=== PATIENT | female | born 1950 | race Caucasian/White ===

== ENCOUNTER 2021-04-26 08:39 | Day surgery (SDC) | payer MEDICARE, MEDICAID ==
[~2021-04-26] VITALS: Ht 157.5 cm; Wt 84.5 kg
[~2021-04-26 08:39] MED LIST: ASPI-1450 PO; ATOR40TA28 PO; CARV12 PO; FAMO20 PO; HYDR25TA2 PO; LOSA-382 PO; METF-1211 PO; TICA90TA PO
[2021-04-26] MEDS ORDERED: METF-446 PO (09:55)
[2021-04-26] MEDS ORDERED: CLOP75TA32 PO (09:55)
[2021-04-26] MEDS ORDERED: LOSA100T58 PO (09:55)
[2021-04-26] MEDS ORDERED: NIFE30TA98 PO (09:55)
[2021-04-26] MEDS ORDERED: METO25 PO (09:55)
[2021-04-26] MEDS ORDERED: EZET10TA57 PO (09:55)
[2021-04-26] MEDS ORDERED: FURO20TA4 PO (09:55)
[2021-04-26] MEDS ORDERED: DiphenhydrAMINE HCL 50 MG CAPSULE PO ONE (10:15)
[2021-04-26] MEDS ORDERED: ASPIRIN 81 MG CHEWABLE TABLET PO ONE (10:15)
[2021-04-26] MEDS ORDERED: SODIUM CHLORIDE 0.9% 1,000 ML IV SCH (10:15)
[2021-04-26] MEDS ORDERED: DIAZEPAM 5 MG TABLET PO ONE (10:15)
[2021-04-26] MEDS ORDERED: DiphenhydrAMINE HCL 50 MG CAPSULE ONE (10:16)
[2021-04-26] MEDS ORDERED: DIAZEPAM 5 MG TABLET ONE (10:16)
[2021-04-26] MEDS ORDERED: SODIUM BICARBONATE 50 MEQ/50 ML VIAL ONE (10:42)
[2021-04-26] MEDS ORDERED: HEPARIN SODIUM 1000 UNITS/NS 1,000 ML ONE (10:42)
[2021-04-26] MEDS ORDERED: LIDOCAINE/PF 1% 30 ML VIAL ONE (10:42)
[2021-04-26] MEDS ORDERED: IOHEXOL 300 MG/ML 100 ML VIAL ONE (10:42)
[2021-04-26] MEDS ORDERED: IOHEXOL 300 MG/ML 150 ML VIAL ONE ×2 (10:42→11:52)
[2021-04-26] MEDS ORDERED: IOHEXOL 300 MG/ML 50 ML VIAL ONE (10:42)
[2021-04-26 11:15] VITALS: BP 166/60
[2021-04-26] MEDS ORDERED: FentaNYL CITRATE PF 100 MCG/2 ML VIAL ONE (11:16)
[2021-04-26] MEDS ORDERED: NALOXONE HCL 0.4 MG/ML VIAL ONE (11:16)
[2021-04-26] MEDS ORDERED: FLUMAZENIL 0.1 MG/ML 5 ML VIAL IVP ONE (11:16)
[2021-04-26] MEDS ORDERED: MIDAZOLAM HCL 2 MG/2 ML VIAL ONE (11:16)
[2021-04-26] MEDS ORDERED: CLOPIDOGREL BISULFATE 300 MG TABLET ONE (11:40)
[2021-04-26] MEDS ORDERED: IOHEXOL 300 MG/ML 150 ML VIAL IARTER ONE (11:45)
[2021-04-26] MEDS ORDERED: HEPARIN SODIUM 1000 UNITS/NS 1,000 ML IARTER ONE (11:45)
[2021-04-26] MEDS ORDERED: LIDOCAINE 1% 30 ML/SOD BICARB 8.4% 4 ML SQ ONE (11:45)
[2021-04-26] MEDS ORDERED: FentaNYL CITRATE PF 100 MCG/2 ML VIAL IVP ONE (11:45)
[2021-04-26] MEDS ORDERED: MIDAZOLAM HCL 2 MG/2 ML VIAL IVP ONE (11:45)
[2021-04-26] MEDS ORDERED: CLOPIDOGREL BISULFATE 300 MG TABLET PO ONE (12:15)
[2021-04-26] MEDS ORDERED: HEPARIN SODIUM,PORCINE 5,000 UNITS/ML VIAL IVP ONE (12:15)
== END 2021-04-26 16:35 | disposition home or self-care (01) ==
LOC: CATHLAB 08:39
PROVIDERS: ATTEND Internal Medicine Interventional Cardiology
DX: I25.110 Atherosclerotic heart disease of native coronary artery with unstable angina pectoris (principal); I10 Essential (primary) hypertension; E11.9 Type 2 diabetes mellitus without complications; M19.90 Unspecified osteoarthritis, unspecified site; E78.00 Pure hypercholesterolemia, unspecified; Z98.890 Other specified postprocedural states; Z87.891 Personal history of nicotine dependence; Z79.899 Other long term (current) drug therapy
CPT/HCPCS: 82962; 92920; 93005; 93458; 99152; 99153; C1760; C1874; C1887; C9600; J1644; J2250; J3010; J3490 ×2; Q9967 ×3; 92921; 92928; J2310

== ENCOUNTER 2021-08-13 11:23 | Observation (INO) | payer MEDICARE, MEDICAID ==
[~2021-08-13] VITALS: Ht 160 cm; Wt 84.5 kg
[~2021-08-13 11:23] MED LIST changes: -CARV12 PO; +CLOP75TA32 PO; +EMPA25TA PO; +EZET10TA57 PO; -FAMO20 PO; +FURO20TA4 PO; -HYDR25TA2 PO; +LINA5TAB PO; -LOSA-382 PO; +LOSA100T58 PO; -METF-1211 PO; +METF-446 PO; +METO25 PO; +NIFE-39 PO; +NITR0.4T52 SL; +SODIUM CHLORIDE 0.9% 1,000 ML ONE; -TICA90TA PO
[2021-08-13] MEDS ORDERED: SODIUM CHLORIDE 0.9% 1,000 ML IV ONE (11:30)
[2021-08-13 12:41] LABS: GLUCOMETER DEV NAME(LOC) SDS.; GLUCOSE,POINT OF CARE 150 MG/DL (70-110)
[2021-08-13 12:56] LABS: COVID AG,FIA SOURCE NASAL SWAB
[2021-08-13] MEDS ORDERED: DiphenhydrAMINE HCL 50 MG CAPSULE PO ONE (13:30)
[2021-08-13] MEDS ORDERED: ASPIRIN 81 MG CHEWABLE TABLET PO ONE (13:30)
[2021-08-13] MEDS ORDERED: DIAZEPAM 5 MG TABLET PO ONE (13:30)
[2021-08-13] MEDS ORDERED: DiphenhydrAMINE HCL 50 MG CAPSULE ONE (13:35)
[2021-08-13] MEDS ORDERED: DIAZEPAM 5 MG TABLET ONE (13:35)
[2021-08-13] MEDS ORDERED: LIDOCAINE/PF 1% 30 ML VIAL ONE (14:29)
[2021-08-13] MEDS ORDERED: HEPARIN SODIUM 1000 UNITS/NS 1,000 ML ONE (14:29)
[2021-08-13] MEDS ORDERED: IOHEXOL 300 MG/ML 100 ML VIAL ONE (14:29)
[2021-08-13] MEDS ORDERED: IOHEXOL 300 MG/ML 50 ML VIAL ONE (14:29)
[2021-08-13] MEDS ORDERED: SODIUM BICARBONATE 50 MEQ/50 ML VIAL ONE (14:29)
[2021-08-13] MEDS ORDERED: IOHEXOL 300 MG/ML 150 ML VIAL ONE (14:29)
[2021-08-13] MEDS ORDERED: FentaNYL CITRATE PF 100 MCG/2 ML VIAL ONE (14:50)
[2021-08-13] MEDS ORDERED: MIDAZOLAM HCL 2 MG/2 ML VIAL ONE (14:50)
[2021-08-13 14:53] VITALS: BP 106/63
[2021-08-13] MEDS ORDERED: LIDOCAINE 1% 30 ML/SOD BICARB 8.4% 4 ML SQ ONE (15:00)
[2021-08-13] MEDS ORDERED: FentaNYL CITRATE PF 100 MCG/2 ML VIAL IVP ONE (15:00)
[2021-08-13] MEDS ORDERED: IOHEXOL 300 MG/ML 150 ML VIAL IARTER ONE (15:00)
[2021-08-13] MEDS ORDERED: HEPARIN SODIUM 1000 UNITS/NS 1,000 ML IARTER ONE (15:00)
[2021-08-13] MEDS ORDERED: MIDAZOLAM HCL 2 MG/2 ML VIAL IVP ONE (15:00)
[2021-08-13] MEDS ORDERED: HEPARIN SODIUM,PORCINE 5,000 UNITS/ML VIAL IVP ONE ×3 (15:15→16:15)
[2021-08-13] MEDS ORDERED: PHENYLEPHRINE 200 MG/D5%-WATER 0 ML IV ONE (15:48)
[2021-08-13] MEDS ORDERED: TICAGRELOR 90 MG TABLET ONE (16:26)
[2021-08-13 16:38] VITALS: BP 106/56
[2021-08-13] MEDS ORDERED: TICAGRELOR 90 MG TABLET PO ONE (16:45)
[2021-08-13] MEDS ORDERED: INSULIN LISPRO 100 UNITS/ML SQ PRN (16:45)
[2021-08-13] MEDS ORDERED: DEXTROSE 50%-WATER 25 GM/50 ML SYRINGE IVP PRN (16:45)
[2021-08-13] MEDS ORDERED: NITROGLYCERIN 0.4 MG SUBLINGUAL TABLET #25 SL PRN (16:45)
[2021-08-13] MEDS ORDERED: MetFORMIN HCL 500 MG TABLET PO SCH (17:30)
[2021-08-13] MEDS ORDERED: ATORVASTATIN CALCIUM 40 MG TABLET PO SCH (21:00)
[2021-08-14 00:36] LABS: GLUCOMETER DEV NAME(LOC) 5S.2B; GLUCOSE,POINT OF CARE 107 MG/DL (70-110)
[2021-08-14 01:56] VITALS: BP 121/51
[2021-08-14 06:08] VITALS: BP 123/54
[2021-08-14] MEDS ORDERED: NIFEdipine 60 MG ER TABLET PO SCH (09:00)
[2021-08-14] MEDS ORDERED: EZETIMIBE 10 MG TABLET PO SCH (09:00)
[2021-08-14] MEDS ORDERED: METOPROLOL TARTRATE 25 MG TABLET PO SCH ×2 (09:00)
[2021-08-14] MEDS ORDERED: FUROSEMIDE 20 MG TABLET PO SCH (09:00)
[2021-08-14] MEDS ORDERED: LinaGLIPtin 5 MG TABLET PO SCH (09:00)
[2021-08-14] MEDS ORDERED: ASPIRIN 81 MG CHEWABLE TABLET PO SCH (09:00)
[2021-08-14] MEDS ORDERED: TICAGRELOR 90 MG TABLET PO SCH (09:00)
[2021-08-14 09:33] VITALS: BP 132/56
[2021-08-14 10:01] LABS: GLUCOMETER DEV NAME(LOC) 5S.2B; GLUCOSE,POINT OF CARE 122 MG/DL (70-110)
[2021-08-14] MEDS ORDERED: TICA90TA PO (11:41)
[2021-08-14 11:56] VITALS: BP 129/61
== END 2021-08-14 13:25 | disposition home or self-care (01) ==
LOC: CATHLAB 11:23 → 5N 11:24 → INTOOBSV 11:24
PROVIDERS: ADMIT Internal Medicine Interventional Cardiology; ATTEND Internal Medicine Interventional Cardiology
DX: I25.10 Atherosclerotic heart disease of native coronary artery without angina pectoris (principal); Z20.822 Contact with and (suspected) exposure to COVID-19; E11.9 Type 2 diabetes mellitus without complications; I10 Essential (primary) hypertension; E78.5 Hyperlipidemia, unspecified; Z79.899 Other long term (current) drug therapy
CPT/HCPCS: 37229; 82962 ×2; 87426; 92920; 92928; 93458; 99152; 99153; 99219 ×2; A9540; C1714; C1760; C1769 ×2; C1874; C1887; C9803; J1644; J2250; J3010; J3490 ×2; J7030; Q9967 ×4; 96365; 96366; 96375; J2370; 93366